=== PATIENT | female | born 1980 | race Caucasian/White ===

== ENCOUNTER 2017-05-05 14:27 | Emergency (ER) | payer OTHER ==
[2017-05-05 14:28] VITALS: BMI 27.1
[2017-05-05 14:44] VITALS: RESP 18; TEMP 98.7
[2017-05-05] MEDS: Albuterol-Ipratrop 3 mg / 0.5 (3 ml) UD IH SCH ×3 (15:50→16:17)
--- NOTE | 2017-05-05 16:18 | ED PDOC ---
Arrival/HPI - General Chief Complaint: Cough, Cold, Congestion Time Seen by Provider: 05/05/17 15:43 Historian: Patient - History of Present Illness Narrative History of Present Illness (Text): 05/05/17 15:46 This 36 yo female with pmh asthma, presents to this ED c/o cough, wheezing x 8 days. Patient stated she was seen by her PMD x 6 days ago. Patient has been taking Levaquin, Medrol Dose pack, and cough medication. Patient stated symptoms improved with Albuterol. PERC negative for PE Time/Duration: Other (see hpi) Context: Home Past Medical History - Infectious Disease Hx of Infectious Diseases: None - Tetanus Immunization Tetanus Immunization: Unknown - Cardiac Hx Cardiac Disorders: No - Pulmonary Hx Asthma: Yes - Neurological Hx Neurological Disorder: No - HEENT Hx HEENT Disorder: No - Renal Hx Renal Disorder: No - Endocrine/Metabolic Hx Endocrine Disorders: No - Hematological/Oncological Hx Blood Disorders: No - Integumentary Hx Dermatological Disorder: No - Musculoskeletal/Rheumatological Hx Musculoskeletal Disorders: No Hx Falls: No - Gastrointestinal Hx Gastrointestinal Disorders: No - Genitourinary/Gynecological Hx Genitourinary Disorders: No - Psychiatric Hx Psychophysiologic Disorder: No Hx Depression: No Hx Emotional Abuse: No Hx Physical Abuse: No Hx Substance Use: No - Past Surgical History Past Surgical History: No Previous - Anesthesia Hx Anesthesia: No Hx Anesthesia Reactions: No Hx Malignant Hyperthermia: No - Suicidal Assessment Feels Threatened In Home Enviroment: No Family/Social History Smoking Status: Never Smoked Hx Alcohol Use: No Hx Substance Use: No Hx Substance Use Treatment: No Allergies/Home Meds Allergies/Adverse Reactions: Allergies No Known Allergies Allergy (Verified 05/05/17 14:34) Home Medications: Home Meds Medication Instructions Recorded Confirmed Brompheniramine/Phenylephrine 10 ml PO Q6 05/05/17 05/05/17 [Dimaphen Elixir] Fluticasone/Vilanterol [Breo 1 puff INH DAILY 05/05/17 05/05/17 Ellipta 200-25 Mcg INH] Guaifenesin [Mucus Relief Chest] 400 mg PO BID 05/05/17 05/05/17 Levofloxacin [Levaquin] 500 mg PO DAILY 05/05/17 05/05/17 Methylprednisolone [Medrol Dose 4 mg PO DAILY 05/05/17 05/05/17 Pack (21 tabs)] Omeprazole [Omeprazole] 20 mg PO DAILY 05/05/17 05/05/17 Physical Exam Vital Signs Temp Pulse Resp BP Pulse Ox 05/05/17 17:16 84 18 132/65 98 05/05/17 14:42 98.7 F 99 H 18 134/66 96 Medical Decision Making ED Course and Treatment: 05/05/17 15:50 I reviewed the risk of using Prednisone with patient which includes AVN, osteoporosis, diabetes, glaucoma, renal failure, liver failure, or worsen of rash. She understood risk vs benefits. I told her that she could stop Prednisone sooner if symptoms resolves. 05/05/17 17:05 Re-evaluation. Patient feels better. Discussed results and plan with patient who expresses understanding. All questions answered and there is agreement with the plan to discharge home with instructions. Patient stable for discharge. Return if symptoms persist or worsen. 05/05/17 17:20 Patient requested Teschristi Barros for her cough Re-evaluation Time: 17:05 Reassessment Condition: Re-examined, Improved - RAD Interpretation Radiology Orders: 05/05/17 15:44 CHEST TWO VIEWS (PA/LAT) [RAD] Stat - Medication Orders Current Medication Orders: Discontinued Medications Albuterol/Ipratropium (Duoneb 3 Mg/0.5 Mg (3 Ml) Ud) 3 ml IH Q15M CAITLIN Stop: 05/05/17 16:16 Last Admin: 05/05/17 16:17 Dose: 3 ml Prednisone (Prednisone Tab) 60 mg PO STAT ONE Stop: 05/05/17 15:45 Last Admin: 05/05/17 16:17 Dose: 60 mg Disposition/Present on Arrival - Present on Arrival Any Indicators Present on Arrival: No History of DVT/PE: No History of Uncontrolled Diabetes: No Urinary Catheter: No History of Decub. Ulcer: No History Surgical Site Infection Following: None - Disposition Have Diagnosis and Disposition been Completed?: Yes Diagnosis: Asthma exacerbation Disposition: HOME/ ROUTINE Disposition Time: 17:06 Patient Plan: Discharge Patient Problems: Current Active Problems Problem Status Onset Asthma exacerbation Acute Condition: GOOD Discharge Instructions (ExitCare): Asthma (ED) Additional Instructions: Call private doctor for follow up visit in 1-2 days. Take medication as instructed. Return to emergency if symptoms worsen Prescriptions: Albuterol HFA [Ventolin HFA 90 mcg/actuation (8 g)] 2 puff IH [id number] PRN #120 puff PRN Reason: Wheezing Albuterol 0.083% [Albuterol Sulfate 3 Ml] 3 ml IH Q6H PRN #1 packet PRN Reason: Wheezing Benzonatate [Tessalon Perles] 100 mg PO TID PRN #20 sgl PRN Reason: Cough Prednisone [Deltasone] 60 mg PO DAILY #12 tablet Referrals: Emily Kimball MD [Family Provider] - Follow up with primary Forms: [facility] (Hebrew), WORK NOTE
--- NOTE | 2017-05-05 16:22 | RAD ---
HISTORY: cough COMPARISON: No prior. TECHNIQUE: Chest PA and lateral FINDINGS: LUNGS: No active pulmonary disease. PLEURA: No significant pleural effusion identified. No pneumothorax apparent. CARDIOVASCULAR: Normal. OSSEOUS STRUCTURES: Note made of a very subtle dextroscoliosis centered in the upper lumbar region. VISUALIZED UPPER ABDOMEN: Normal. OTHER FINDINGS: None. IMPRESSION: No active disease.
[2017-05-05 17:17] VITALS: BP 132/65; PULSE 84; O2SAT 98
== END 2017-05-05 17:21 | disposition home or self-care (01) ==
LOC: ED 14:27
DX: J45.901 Unspecified asthma with (acute) exacerbation (principal)

== ENCOUNTER 2018-09-26 17:33 | Observation (INO) | payer MEDICAID, OTHER ==
[2018-09-26 17:34] VITALS: BMI 27.1
[2018-09-26 19:23] LABS: HEMOGLOBIN 11.9 g/dL (12.0-16.0); MEAN CELL VOLUME 81.9 fl (80.0-105.0); MEAN CORPUSCULAR HEMOGLOBIN 26.2 pg (25.0-35.0); MEAN PLATELET VOLUME 10.1 fl (7.0-11.0); RBC 4.54 10^6/uL (3.5-6.1); RED CELL DISTRIBUTION WIDTH 13.4 % (11.5-14.5); WHITE BLOOD COUNT 8.6 10^3/uL (4.5-11.0)
[2018-09-26 19:43] LABS: ALB/GLOB RATIO 1.5 (1.1-1.8); ALBUMIN 4.8 g/dL (3.0-4.8); ALT/SGPT 19 U/L (7-56); AST/SGOT 37 U/L (14-36); BLOOD UREA NITROGEN 20 mg/dL (7-21); CALCIUM 9.5 mg/dL (8.4-10.5)
--- NOTE | 2018-09-26 19:50 | ED PDOC ---
Arrival/HPI - General Chief Complaint: Headache Time Seen by Provider: 09/26/18 19:21 Historian: Patient - History of Present Illness Narrative History of Present Illness (Text): 09/26/18 19:47 A 38 year old female, whose past medical history includes asthma and recently diagnosed lyme disease (placed on oral Amoxicillin 1 week ago), presents to the emergency possible fever and joint pain since prior to diagnosing lyme disease. Patient reports she went to see her PMD for symptoms and she was tested positive for lyme. States she has not felt better since starting the antibiotics, now complaining of headache, chest pain, and worsening joint pains. Patient denies any shortness of breath, or any other complaints at this time. PMD: Dr. Emily Kimball Past Medical History - Provider Review Nursing Documentation Reviewed: Yes - Infectious Disease Hx of Infectious Diseases: None - Tetanus Immunization Tetanus Immunization: Unknown - Reproductive Menopause: No - Cardiac Hx Cardiac Disorders: No - Pulmonary Hx Respiratory Disorders: Yes Hx Asthma: Yes - Neurological Hx Neurological Disorder: No - HEENT Hx HEENT Disorder: No - Renal Hx Renal Disorder: No - Endocrine/Metabolic Hx Endocrine Disorders: No - Hematological/Oncological Hx Blood Disorders: No - Integumentary Hx Dermatological Disorder: No - Musculoskeletal/Rheumatological Hx Musculoskeletal Disorders: No - Gastrointestinal Hx Gastrointestinal Disorders: Yes Other/Comment: LEFT ABDOMINAL PAIN - Genitourinary/Gynecological Hx Genitourinary Disorders: No - Psychiatric Hx Psychophysiologic Disorder: No Hx Substance Use: No - Past Surgical History Past Surgical History: No Previous - Surgical History Other/Comment: OVAIAN CYSTECTOMY - Anesthesia Hx Anesthesia: Yes Hx Anesthesia Reactions: Yes (EXACERBATION OF ASTHMA) Hx Malignant Hyperthermia: No - Suicidal Assessment Feels Threatened In Home Enviroment: No Family/Social History - Physician Review Nursing Documentation Reviewed: Yes Family/Social History: No Known Family HX Smoking Status: Never Smoked Hx Alcohol Use: No Hx Substance Use: No Hx Substance Use Treatment: No Allergies/Home Meds Allergies/Adverse Reactions: Allergies No Known Allergies Allergy (Verified 06/23/17 09:46) Home Medications: Home Meds Medication Instructions Recorded Confirmed Fluticasone/Vilanterol [Breo 1 puff INH DAILY 05/05/17 06/23/17 Ellipta 200-25 Mcg INH] Albuterol HFA [Ventolin HFA 90 2 puff IH [id number] 06/23/17 06/23/17 mcg/actuation (8 g)] Review of Systems - Physician Review All systems were reviewed & negative as marked: Yes - Review of Systems Constitutional: Fevers Respiratory: absent: SOB Cardiovascular: Chest Pain Musculoskeletal: Arthralgias Neurological: Headache Physical Exam Vital Signs Reviewed: Yes Vital Signs Temp Pulse Resp BP Pulse Ox 09/26/18 17:48 98.5 F 106 H 20 132/80 98 Temperature: Afebrile Blood Pressure: Normal Pulse: Regular Respiratory Rate: Normal Appearance: Positive for: Well-Appearing, Non-Toxic, Comfortable Pain Distress: None Mental Status: Positive for: Alert and Oriented X 3 - Systems Exam Head: Present: Atraumatic, Normocephalic Pupils: Present: PERRL Extroacular Muscles: Present: EOMI Conjunctiva: Present: Normal Mouth: Present: Moist Mucous Membranes Neck: Present: Normal Range of Motion Respiratory/Chest: Present: Clear to Auscultation, Good Air Exchange. No: Respiratory Distress, Accessory Muscle Use Cardiovascular: Present: Regular Rate and Rhythm, Normal S1, S2. No: Murmurs Abdomen: No: Tenderness, Distention, Peritoneal Signs Back: Present: Normal Inspection Upper Extremity: Present: Normal Inspection. No: Cyanosis, Edema Lower Extremity: Present: Normal Inspection. No: Edema Neurological: Present: GCS=15, CN II-XII Intact, Speech Normal Skin: Present: Warm, Dry, Normal Color. No: Rashes Psychiatric: Present: Alert, Oriented x 3, Normal Insight, Normal Concentration Medical Decision Making ED Course and Treatment: 09/26/18 19:49 Impression: 38 year old female with fever, worsening joint pain, headache, and chest pain. Physical exam is benign. Plan: -- EKG -- Chest X-ray -- Labs -- Head CT -- Reassess and disposition Progress Notes: EKG: Ordered, reviewed, and independently interpreted the EKG. Rate : 81 BPM Rhythm : NSR Interpretation : No ST-segment elevations or depressions, no T-wave inversions, normal intervals. Comparison : No previous EKG for comparison. 09/26/18 21:12 CXR Impression: As read by me, no acute process. CT Head Electronically signed on September 26, 2018 9:51:31 PM EDT by: Ki Yuz, M.D Impression: 1. No acute intracranial hemorrhage or infarct. 2. Right sphenoid sinusitis. 09/26/18 21:29 Case discussed with medical technologist microbiology and Dr. Pulido who is aware and agrees with the plan. Accepts patient into hospitalist service. - Lab Interpretations Lab Results: Total Bilirubin 0.3 mg/dL (0.2-1.3) 09/26/18 18:05 AST 37 U/L (14-36) H 09/26/18 18:05 ALT 19 U/L (7-56) 09/26/18 18:05 Alkaline Phosphatase 37 U/L (38-126) L 09/26/18 18:05 Total Protein 8.1 g/dL (5.8-8.3) 09/26/18 18:05 Albumin 4.8 g/dL (3.0-4.8) 09/26/18 18:05 Globulin 3.3 gm/dL 09/26/18 18:05 Albumin/Globulin Ratio 1.5 (1.1-1.8) 09/26/18 18:05 - RAD Interpretation Radiology Orders: 09/26/18 19:33 CHEST PORTABLE [RAD] Stat - Scribe Statement The provider has reviewed the documentation as recorded by the Irene Rahman Provider Scribe Attestation: All medical record entries made by the Roulaibtanisha were at my direction and personally dictated by me. I have reviewed the chart and agree that the record accurately reflects my personal performance of the history, physical exam, medical decision making, and the department course for this patient. I have also personally directed, reviewed, and agree with the discharge instructions and disposition. Disposition/Present on Arrival - Present on Arrival Any Indicators Present on Arrival: No History of DVT/PE: No History of Uncontrolled Diabetes: No Urinary Catheter: No History of Decub. Ulcer: No History Surgical Site Infection Following: None - Disposition Have Diagnosis and Disposition been Completed?: Yes Diagnosis: Chest pain, Lyme disease, Polyarthralgia, Headache Disposition: HOSPITALIZED Disposition Time: 21:28 Patient Plan: Observation Patient Problems: Current Active Problems Problem Status Onset Chest pain Acute Headache Acute Lyme disease Acute Polyarthralgia Acute Condition: STABLE
[2018-09-26 19:52] LABS: INR 1.08; PARTIAL THROMBOPLASTIN TIME 34.3 Seconds (26.9-38.3)
[2018-09-26 20:09] LABS: GFR NON-AFRICAN AMERICAN > 60
[2018-09-26 20:10] LABS: TROPONIN I < 0.01 ng/mL
[2018-09-26] MEDS ORDERED: cefTRIAXone 1 gm 1 GM/100 ML BAG IV STA (21:25)
[2018-09-26] MEDS ORDERED: Albuterol-Ipratrop 3 mg / 0.5 (3 ml) UD IH PRN (21:35)
--- NOTE | 2018-09-26 21:44 | CP.PCM.HP ---
<MichelleDaphne - Last Filed: 09/26/18 21:40> History of Present Illness - History of Present Illness History of Present Illness: H&P for HospitalistUriel PGY3 This is a 38yo F with past medical history of anxiety and recently diagnosed lyme disease 1 week ago by PMD who came to ED for subjective fevers, joint pain and chest pain. Patient was started on amoxicillin 11 days ago without any relief. Patient states her symptoms started in August. She was having joint pain in her hands and knees that would come and go and fatigue. Patient also had subjective fevers and when she measures her temp it is always 99F. She denies having any rashes or target lesions. Patient states she does not go camping or hiking, but does go to outdoor sports games for her children. She never noticed a tick bite and she has a dog who doesn't have a problems with ticks. She does complain of chest pain that moves into her neck and hurts with palpation. She states her knees swell intermittently, but are not swollen today. She denies shortness of breath, nausea/vomiting/diarrhea, fever/chills, dysuria/ hematuria, numbness or tingling weight loss. Past medical history: anxiety Past hospitalizations: pre-eclampsia, panic attack (at other facility) Past surgical history: tubal ligation Home meds: Amoxicillin for past 11 days Allergies: NKDA Social history: Denies EtOH, drug or tobacco use. Lives with and 2 children. Goes to school for teaching Family history: Dad- from [place] (pt not sure at what age), Mom- - unknown cause PMD: Dr. Emily Kimball Present on Admission - Present on Admission Any Indicators Present on Admission: No Review of Systems - Review of Systems All systems: reviewed and no additional remarkable complaints except Past Patient History - Infectious Disease Hx of Infectious Diseases: None - Tetanus Immunizations Tetanus Immunization: Unknown - Past Medical History & Family History Past Medical History?: Yes - Past Social History Smoking Status: Never Smoked - CARDIAC Hx Cardiac Disorders: No - PULMONARY Hx Respiratory Disorders: Yes Hx Asthma: Yes - NEUROLOGICAL Hx Neurological Disorder: No - HEENT Hx HEENT Problems: No - RENAL Hx Chronic Kidney Disease: No - ENDOCRINE/METABOLIC Hx Endocrine Disorders: No - HEMATOLOGICAL/ONCOLOGICAL Hx Blood Disorders: No - INTEGUMENTARY Hx Dermatological Problems: No - MUSCULOSKELETAL/RHEUMATOLOGICAL Hx Musculoskeletal Disorders: No - GASTROINTESTINAL Hx Gastrointestinal Disorders: Yes Other/Comment: LEFT ABDOMINAL PAIN - GENITOURINARY/GYNECOLOGICAL Hx Genitourinary Disorders: No - PSYCHIATRIC Hx Psychophysiologic Disorder: No Hx Substance Use: No - SURGICAL HISTORY Other/Comment: OVAIAN CYSTECTOMY - ANESTHESIA Hx Anesthesia: Yes Hx Anesthesia Reactions: Yes (EXACERBATION OF ASTHMA) Hx Malignant Hyperthermia: No Meds Allergies/Adverse Reactions: Allergies Allergy/AdvReac Type Severity Reaction Status Date / Time No Known Allergies Allergy Verified 06/23/17 09:46 Physical Exam - Constitutional Appears: No Acute Distress - Head Exam Head Exam: ATRAUMATIC, NORMAL INSPECTION, NORMOCEPHALIC - Eye Exam Eye Exam: Normal appearance, PERRL Pupil Exam: NORMAL ACCOMODATION, PERRL - ENT Exam ENT Exam: Mucous Membranes Moist - Respiratory Exam Respiratory Exam: Chest Wall Tenderness (on L chest ), Clear to Auscultation Bilateral, NORMAL BREATHING PATTERN. absent: Rales, Rhonchi, Wheezes - Cardiovascular Exam Cardiovascular Exam: REGULAR RHYTHM, +S1, +S2. absent: Gallop, Rubs, Systolic Murmur - GI/Abdominal Exam GI & Abdominal Exam: Normal Bowel Sounds, Soft. absent: Mass, Rebound, Rigid, Tenderness - Extremities Exam Extremities exam: Positive for: normal inspection. Negative for: calf tenderness, joint swelling, pedal edema, tenderness Additional comments: no joint swelling or tenderness in hands, knees, ankles, elbows, or shoulders - Neurological Exam Neurological exam: Alert, CN II-XII Intact, Oriented x3 Additional comments: no evidence of facial palsy - Psychiatric Exam Psychiatric exam: Normal Affect, Normal Mood - Skin Skin Exam: Dry, Intact, Normal Color Results - Vital Signs Recent Vital Signs: Last Vital Signs Temp 98.5 F 09/26/18 17:48 Pulse 91 H 09/26/18 21:04 Resp 18 09/26/18 21:04 BP 117/63 09/26/18 21:04 Pulse Ox 97 09/26/18 21:04 - Labs Result Diagrams: 09/26/18 18:05 09/26/18 18:05 Labs: Laboratory Results - last 24 hr 09/26/18 09/26/18 09/26/18 18:05 18:05 18:05 WBC 8.6 RBC 4.54 Hgb 11.9 L Hct 37.2 MCV 81.9 MCH 26.2 MCHC 32.0 RDW 13.4 Plt Count 290 MPV 10.1 PT 12.0 INR 1.08 APTT 34.3 D-Dimer, Quantitative Sodium 139 Potassium 3.9 Chloride 101 Carbon Dioxide 26 Anion Gap 16 BUN 20 Creatinine 0.7 Est GFR ( Amer) > 60 Est GFR (Non-Af Amer) > 60 Random Glucose 89 Calcium 9.5 Total Bilirubin 0.3 AST 37 H ALT 19 Alkaline Phosphatase 37 L Lactate Dehydrogenase 408 Total Creatine Kinase 45 Troponin I < 0.01 Total Protein 8.1 Albumin 4.8 Globulin 3.3 Albumin/Globulin Ratio 1.5 09/26/18 18:05 WBC RBC Hgb Hct MCV MCH MCHC RDW Plt Count MPV PT INR APTT D-Dimer, Quantitative < 200 Sodium Potassium Chloride Carbon Dioxide Anion Gap BUN Creatinine Est GFR ( Amer) Est GFR (Non-Af Amer) Random Glucose Calcium Total Bilirubin AST ALT Alkaline Phosphatase Lactate Dehydrogenase Total Creatine Kinase Troponin I Total Protein Albumin Globulin Albumin/Globulin Ratio Assessment & Plan - Assessment and Plan (Free Text) Assessment: 1. Myalgia/Arthralgia - most likely secondary to lyme disease 2. Lyme disease - recently diagnosed 11 days ago 3. Hx of anxiety Labs and imaging reviewed. Head CT showed R sphenoid sinusitis but no other intracranial pathology. CXR showed no active disease. Will place patient on d oxycycline and repeat lyme titer as well as HIV. CRP and ESR ordered. Tylenol prn pain. ID consulted. EKG showed NSR w/ AL interval of 144ms. No evidence of heart block at this time. Will trend troponin. Xanax prn for anxiety. Patient is hemodynamically stable and no sign of sepsis at this time. Case seen, discussed and reviewed with Dr. Ashok Martinez PGY3 - Date & Time Date: 09/26/18 Time: 22:26 <Dorita Pulido - Last Filed: 09/27/18 05:16> Results - Vital Signs Recent Vital Signs: Last Vital Signs Temp 98.1 F 09/27/18 00:00 Pulse 70 09/27/18 02:00 Resp 18 09/27/18 00:00 BP 97/63 L 09/27/18 00:00 Pulse Ox 99 09/27/18 00:00 - Labs Result Diagrams: 09/26/18 18:05 09/26/18 18:05 Labs: Laboratory Results - last 24 hr 09/26/18 09/26/18 09/26/18 18:05 18:05 18:05 WBC 8.6 RBC 4.54 Hgb 11.9 L Hct 37.2 MCV 81.9 MCH 26.2 MCHC 32.0 RDW 13.4 Plt Count 290 MPV 10.1 ESR PT 12.0 INR 1.08 APTT 34.3 D-Dimer, Quantitative Sodium 139 Potassium 3.9 Chloride 101 Carbon Dioxide 26 Anion Gap 16 BUN 20 Creatinine 0.7 Est GFR ( Amer) > 60 Est GFR (Non-Af Amer) > 60 Random Glucose 89 Calcium 9.5 Total Bilirubin 0.3 AST 37 H ALT 19 Alkaline Phosphatase 37 L Lactate Dehydrogenase 408 Total Creatine Kinase 45 Troponin I < 0.01 Total Protein 8.1 Albumin 4.8 Globulin 3.3 Albumin/Globulin Ratio 1.5 09/26/18 09/26/18 09/26/18 18:05 21:00 22:35 WBC RBC Hgb Hct MCV MCH MCHC RDW Plt Count MPV ESR 28 H PT INR APTT D-Dimer, Quantitative < 200 Sodium Potassium Chloride Carbon Dioxide Anion Gap BUN Creatinine Est GFR ( Amer) Est GFR (Non-Af Amer) Random Glucose Calcium Total Bilirubin AST ALT Alkaline Phosphatase Lactate Dehydrogenase Total Creatine Kinase Troponin I < 0.01 Total Protein Albumin Globulin Albumin/Globulin Ratio Attending/Attestation - Attestation I have personally seen and examined this patient.: Yes I have fully participated in the care of the patient.: Yes I have reviewed all pertinent clinical information: Yes
[2018-09-26 23:13] LABS: TROPONIN I < 0.01 ng/mL
[2018-09-27] MEDS ORDERED: Pneumococcal 23-Valent Vaccine IM ONE (00:34)
--- NOTE | 2018-09-27 07:54 | CP.PCM.PN ---
<Alan Da Silva - Last Filed: 09/27/18 13:13> Subjective - Date & Time of Evaluation Date of Evaluation: 09/27/18 Time of Evaluation: 09:30 - Subjective Subjective: Alan Da Silva-Internal Medicine Resident- Progress Note on Behalf of Dr. Carlson Subjective: Patient seen and examined. No acute events overnight. States chest pain has resolved. Admits to baseline lower extremity discomfort and joint pain. Denies fever, chills, chest pain, SOB, abdominal pain, nausea, vomiting, diarrhea, constipation, and urinary symptoms. 12 point ROS negative except as indicated in the HPI Physical Examination: - Constitutional Appears: No Acute Distress - Head Exam Head Exam: ATRAUMATIC, NORMAL INSPECTION, NORMOCEPHALIC - Eye Exam Eye Exam: Normal appearance, PERRL - ENT Exam ENT Exam: Mucous Membranes Moist - Respiratory Exam Respiratory Exam: Chest Wall Tenderness (on L chest ), Clear to Auscultation Bi lateral, NORMAL BREATHING PATTERN. absent: Rales, Rhonchi, Wheezes - Cardiovascular Exam Cardiovascular Exam: REGULAR RHYTHM, +S1, +S2. absent: Gallop, Rubs, Systolic Murmur - GI/Abdominal Exam GI & Abdominal Exam: Normal Bowel Sounds, Soft. absent: Mass, Rebound, Rigid, Tenderness - Extremities Exam Extremities exam: Positive for: normal inspection. Negative for: calf tendern ess, joint swelling, pedal edema, tenderness Additional comments: no joint swelling or tenderness in hands, knees, ankles, elbows, or shoulders - Neurological Exam Neurological exam: Alert, CN II-XII Intact, Oriented x3 - Psychiatric Exam Psychiatric exam: Normal Affect, Normal Mood - Skin Skin Exam: Dry, Intact, Normal Color Assessment and Plan: Patient is a 38 year old female with a past medical history of anxiety and rece ntly diagnosed lyme disease 1 week ago by PMD who was admitted for evaluation and treatment of subjective fevers, joint pain and chest pain. Atypical Chest Pain- resolved - troponins < 0.01 x 3 - EKG reviewed- NSR HR 81, no defining ST- T wave changes Sphenoid Sinusitis - 09/26/[address] without contrast- showed R sphenoid sinusitis but no other intracranial pathology - continue on vancomycin 1 gram IV daily, rocephin 2 grams IV daily, and doxycycline 100mg IV q12 - ID consulted- appreciate recommendations Suspected Lyme disease - continue on vancomycin 1 gram IV daily, rocephin 2 grams IV daily, and doxycyc line 100mg IV q12 - ID consulted- appreciate recommendations- lyme IgG, IgM, RPR, HIV, Hepatitis panel, parvovirus B19, gonorrhea/chlamydia RNA ordered and pending Myalgia/Arthralgia - continue acetaminophen 650mg q4 prn moderate pain Anxiety Disorder - continue home xanax 0.25mg PO TID prn anxiety Patient seen, case discussed with, and plan approved by attending physician, Dr. Carlson. Objective - Vital Signs/Intake and Output Vital Signs (last 24 hours): Temp Pulse Resp BP Pulse Ox 98.1 F 55 L 18 97/63 L 99 09/27/18 00:00 09/27/18 06:00 09/27/18 00:00 09/27/18 00:00 09/27/18 00:00 Intake and Output: 09/27/18 09/27/18 06:59 18:59 Intake Total 0 Output Total 0 Balance 0 - Medications Medications: Current Medications Acetaminophen (Tylenol 325mg Tab) 650 mg PO Q6H PRN PRN Reason: Pain, moderate (4-7) Last Admin: 09/27/18 07:38 Dose: 650 mg Albuterol/Ipratropium (Duoneb 3 Mg/0.5 Mg (3 Ml) Ud) 3 ml IH Q2H PRN PRN Reason: Shortness of Breath Alprazolam (Xanax) 0.25 mg PO Q8H PRN; Protocol PRN Reason: Anxiety Stop: 10/03/18 22:31 Doxycycline Hyclate 100 mg/ (Sodium Chloride) 100 mls @ 100 mls/hr IVPB Q12 CAITLIN; Protocol - Labs Labs: 09/26/18 18:05 09/26/18 18:05 PT 12.0 SECONDS (9.4-12.5) 09/26/18 18:05 INR 1.08 09/26/18 18:05 APTT 34.3 Seconds (26.9-38.3) 09/26/18 18:05 <Curly Carlson - Last Filed: 09/27/18 13:32> Objective - Vital Signs/Intake and Output Vital Signs (last 24 hours): Temp Pulse Resp BP Pulse Ox 98.2 F 80 18 96/62 L 98 09/27/18 07:00 09/27/18 08:00 09/27/18 07:00 09/27/18 07:00 09/27/18 08:00 Intake and Output: 09/27/18 09/27/18 06:59 18:59 Intake Total 0 Output Total 0 Balance 0 - Medications Medications: Current Medications Acetaminophen (Tylenol 325mg Tab) 650 mg PO Q4 PRN PRN Reason: Pain, moderate (4-7) Last Admin: 09/27/18 12:10 Dose: 650 mg Albuterol/Ipratropium (Duoneb 3 Mg/0.5 Mg (3 Ml) Ud) 3 ml IH Q2H PRN PRN Reason: Shortness of Breath Alprazolam (Xanax) 0.25 mg PO Q8H PRN; Protocol PRN Reason: Anxiety Stop: 10/03/18 22:31 Doxycycline Hyclate 100 mg/ (Sodium Chloride) 100 mls @ 100 mls/hr IVPB Q12 CAITLIN; Protocol Last Admin: 09/27/18 09:36 Dose: 100 mls/hr Ceftriaxone Sodium (Rocephin 2 Gm Ivpb) 2 gm in 100 mls @ 100 mls/hr IVPB DAILY CAITLIN; Protocol Last Admin: 09/27/18 10:58 Dose: 100 mls/hr Vancomycin HCl (Vancomycin 1gm) 1 gm in 250 mls @ 167 mls/hr IVPB Q12H CAITLIN; Protocol Stop: 10/06/18 12:01 - Labs Labs: 09/27/18 07:00 09/27/18 07:00 PT 12.0 SECONDS (9.4-12.5) 09/26/18 18:05 INR 1.08 09/26/18 18:05 APTT 34.3 Seconds (26.9-38.3) 09/26/18 18:05 Attending/Attestation - Attestation I have personally seen and examined this patient.: Yes I have fully participated in the care of the patient.: Yes I have reviewed all pertinent clinical information, including history, physical exam and plan: Yes Notes (Text): 09/27/18 13:27 38 year old female with past medical history of anxiety and recently diagnosed Lyme disease who presented last night with complaint of subjective fevers, myalgias/arthralgias and chest pain. Serial cardiac enzymes were negative and ACS was ruled out. CT head negative for acute findings. ID evaluation was appr eciated and patient is on iv antibiotics. Further workup labs and serologies as above are ordered. Will follow up on studies and cultures. Curly Carlson MD Hospitalist.
[2018-09-27 08:04] LABS: HEMOGLOBIN 11.7 g/dL (12.0-16.0); MEAN CELL VOLUME 81.5 fl (80.0-105.0); MEAN CORPUSCULAR HEMOGLOBIN 25.8 pg (25.0-35.0); MEAN CORPUSCULAR HGB CONC 31.6 g/dl (31.0-37.0); RBC 4.54 10^6/uL (3.5-6.1); RED CELL DISTRIBUTION WIDTH 13.3 % (11.5-14.5); WHITE BLOOD COUNT 6.5 10^3/uL (4.5-11.0)
[2018-09-27 08:23] LABS: TROPONIN I < 0.01 ng/mL
[2018-09-27 08:32] LABS: ALB/GLOB RATIO 1.4 (1.1-1.8); ALBUMIN 4.1 g/dL (3.0-4.8); AST/SGOT 31 U/L (14-36); BLOOD UREA NITROGEN 15 mg/dL (7-21); GFR NON-AFRICAN AMERICAN > 60
[2018-09-27 08:53] LABS: ALT/SGPT 13 U/L (7-56); CALCIUM 8.7 mg/dL (8.4-10.5)
--- NOTE | 2018-09-27 09:14 | RAD ---
Date of service: 09/26/2018 HISTORY: chest pain COMPARISON: Chest radiograph dated 05/05/2017. TECHNIQUE: 1 view obtained. FINDINGS: LUNGS: No active pulmonary disease. PLEURA: No significant pleural effusion identified, no pneumothorax apparent. CARDIOVASCULAR: No aortic atherosclerotic calcification present. Normal cardiac size. No pulmonary vascular congestion. OSSEOUS STRUCTURES: No significant abnormalities. VISUALIZED UPPER ABDOMEN: Normal. OTHER FINDINGS: None. IMPRESSION: No active disease.
--- NOTE | 2018-09-27 10:46 | CARD ---
APPROVED REPORT Date of service: 09/26/2018 EKG Measurement Heart [id number] <Conclusion> Normal sinus rhythm Normal ECG
[2018-09-27] MEDS: cefTRIAXone 2 GM IN NS 2 GM/100 ML BAG IVPB SCH (10:58)
--- NOTE | 2018-09-27 11:07 | CT ---
Date of service: 09/26/2018 PROCEDURE: CT HEAD WITHOUT CONTRAST. HISTORY: headache COMPARISON: CT head dated 09/21/2015. TECHNIQUE: Axial computed tomography images were obtained through the head/brain without intravenous contrast. Radiation dose: Total exam DLP = 827.24 mGy-cm. This CT exam was performed using one or more of the following dose reduction techniques: Automated exposure control, adjustment of the mA and/or kV according to patient size, and/or use of iterative reconstruction technique. FINDINGS: HEMORRHAGE: No intracranial hemorrhage. BRAIN: No mass effect or edema. No atrophy or chronic microvascular ischemic changes. VENTRICLES: Unremarkable. No hydrocephalus. CALVARIUM: Unremarkable. PARANASAL SINUSES: Unremarkable as visualized. No significant inflammatory changes. MASTOID AIR CELLS: Unremarkable as visualized. No inflammatory changes. OTHER FINDINGS: None. IMPRESSION: No acute intracranial pathology.
[2018-09-27] MEDS ORDERED: Vancomycin 1gm in NS 250ml 1 GM/250 ML BAG IVPB SCH ×2 (12:00→16:47)
--- NOTE | 2018-09-27 23:12 | CON ---
DATE: 09/27/2018 The patient is in bed, in no acute distress, nontoxic. CHIEF COMPLAINT: Joint pain times one week duration. HISTORY OF PRESENT ILLNESS: The patient is a 38-year-old female with a history of asthma, who is having joint pain and polyarthritis. The patient was seen by her doctor and diagnosed with Lyme, was given amoxicillin 500 mg. The patient has been on the medication for 1 week. The patient states that she is not improved. She actually has gotten worse. She is complaining of neck pain and headaches and low-grade fevers and her joint is a polyarticular joint. She states that she has no abdominal pain, no dysuria or frequency. She has not had any diarrhea. No rash. No nausea or vomiting. The patient's review of records reveals the patient has been to the emergency room in 2017 twice with chief complaints of altered bowel habit and bloating and another time with cold and cough and congestion. In 2015, the patient was in the emergency room 3 times with chest pain on two of those occasions and one with right flank pain. In 2014, the patient was in the emergency room complaining of cough and in 2013, the patient was in the emergency room and again in 2012, the patient was in the emergency room. PAST MEDICAL HISTORY: Significant for panic disorder and anxiety and asthma. PAST SURGICAL HISTORY: Significant for tubal ligation. SOCIAL HISTORY: She has not had any travel outside of the [place] recently. She is foreign born. She lives in [place] and works in [place]. She states she does not go anywhere between [place] and [place] and she does have a dog, but she is not big, she does not hike, the dogs have not left [place]. She has not had any exposure to Lyme. She is and has two children, a monogamous relationship. She has no history of sexually transmitted diseases. She does not smoke. ALLERGIES: THE PATIENT HAS NO KNOWN ALLERGIES. PHYSICAL EXAMINATION VITAL SIGNS: The patient is in bed with a temperature of 98, heart rate was up to 106 and as low as 55, blood pressure 97/60, and a respiratory of 18 up to 20. HEENT: Unremarkable. NECK: Supple. LUNGS: Decreased breath sounds. HEART: Normal S1, S2. ABDOMEN: Soft and nontender. No organomegaly. MUSCULOSKELETAL: Examination of the joints reveals there is no or any particular joint inflammation. LABORATORY EXAMINATION: Reveals the white count is 8.6, hemoglobin of 11.9 and platelets of 220 with a sed rate of 28. Coagulation is noted. D-dimer is negative. INR 1. Chemistries reveals AST of 37, alk phos is 37 and C-reactive protein is pending. Creatinine is normal. Microbiology is pending. REVIEW OF REPORTS: Reveals the patient had a CT scan of the head because of a headache and there is reported to be no intracranial pathology. The patient also had a chest x-ray, which is also reported to be negative. ASSESSMENT AND PLAN: A 38-year-old female with asthma, panic disorder, and anxiety, admitted with polyarticular arthritis. The patient was diagnosed with Lyme as outpatient although no real exposure between [place] and [place]. Staphylococcus aureus is in the differential versus group A Streptococcus versus neisseria gonorrhoeae, although she is and has children from a monogamous relationship. An acute rheumatic fever would be less likely, she has no fever, poststreptococcal arthritis. She did not have any sore throat. Reactive arthritis and hepatitis D, parvovirus B19 possibility, rubella vs chikungunya, although she has no history of travel history to support that. We will order blood cultures, should have a rheumatology evaluation. We will order a 2-step Lyme test, chlamydia, NAAT test, HIV test, check on the C-reactive protein. We will order an RPR and a FTA. We will order a parvovirus, PCR and antibody test in addition to hepatitis because of the LFT elevation. Hepatitis B can cause polyarthritis, hepatitis panel, hepatitis B surface antigen and a hepatitis C antibody, a PCR and hepatitis B PCR. Blood cultures will be ordered and HIV tests will be ordered. We will start the patient on vancomycin, Rocephin, and doxycycline. We will follow closely with you. Kings Ring MD
[2018-09-28] MEDS ORDERED: Vancomycin 1gm in NS 250ml 1 GM/250 ML BAG IVPB SCH (03:00)
[2018-09-28] MEDS ORDERED: Pantoprazole 40 mg EC Tab PO SCH (06:00)
[2018-09-28 06:42] LABS: HEMOGLOBIN 11.5 g/dL (12.0-16.0); MEAN CORPUSCULAR HEMOGLOBIN 26.3 pg (25.0-35.0); RBC 4.38 10^6/uL (3.5-6.1); RED CELL DISTRIBUTION WIDTH 13.2 % (11.5-14.5); WHITE BLOOD COUNT 6.7 10^3/uL (4.5-11.0)
[2018-09-28 07:28] LABS: ALB/GLOB RATIO 1.3 (1.1-1.8); ALBUMIN 4.1 g/dL (3.0-4.8); ALT/SGPT 24 U/L (7-56); AST/SGOT 38 U/L (14-36); BLOOD UREA NITROGEN 14 mg/dL (7-21); CALCIUM 8.6 mg/dL (8.4-10.5); GFR NON-AFRICAN AMERICAN > 60
[2018-09-28 08:29] VITALS: BP 114/70; PULSE 80; RESP 18; TEMP 98.3; O2SAT 100
[2018-09-28 08:43] LABS: HEPATITIS B SURFACE AG Negative (NEGATIVE)
[2018-09-28 08:44] LABS: HEPATITIS B SURFACE AG Negative (NEGATIVE)
[2018-09-28 08:50] LABS: HEPATITIS A IGM NEGATIVE (NEGATIVE); HEPATITIS B CORE AB NEGATIVE (NEGATIVE)
[2018-09-28 09:01] LABS: HEPATITIS C ANTIBODY NEGATIVE (NEGATIVE)
[2018-09-28] MEDS: cefTRIAXone 2 GM IN NS 2 GM/100 ML BAG IVPB SCH (09:10)
[2018-09-28] MEDS ORDERED: Enoxaparin 40 mg Syringe SC SCH (10:00)
--- NOTE | 2018-09-28 13:00 | PN ---
DATE: 09/28/2018 SUBJECTIVE: The patient had a questionable red neck syndrome with vancomycin yesterday. This morning, she still has generalized aches and pains and joint pain. PHYSICAL EXAMINATION: VITAL SIGNS: Temperature is 98, blood pressure is 108/60, respiratory of 18, and heart rate of 88. HEENT: Unremarkable. NECK: Supple. LUNGS: Have decreased breath sounds. HEART: Normal S1 and S2. ABDOMEN: Soft, nontender. LABORATORY DATA: Reveals a white count of 8.6, hemoglobin of 11. Chemistries are noted. Sed rate of 28, BUN of 14, and creatinine of 0.6. C-reactive protein is 19.9 and RPR is negative. Microbiology is pending. REVIEW OF ORDERS: Reveals the hepatitis profile and Chlamydia NAAT test, SABA and FTA and fourth generation cephalosporin two-step Lyme disease, parvovirus workup is still pending. Blood cultures are pending. The Lyme is pending, currently on doxycycline IV, which I will change to p.o. The patient is also on ceftriaxone. ASSESSMENT AND PLAN: A 38-year-old female, who is admitted with history of panic disorder, history of anxiety, history of asthma. The patient is admitted with polyarticular arthritis, disease of Lyme disease as outpatient, and workup pending, on Rocephin and doxycycline. We will change the doxycycline to p.o. pending the cultures and serology and initial workup. We will discontinue the vancomycin due to the questionable reaction and the vancomycin was given too read neck syndrome. Kings Ring MD
--- NOTE | 2018-09-28 13:25 | CP.PCM.DIS ---
<Huang Barron - Last Filed: 09/28/18 13:08> Provider - Provider Date of Admission: 09/27/18 10:19 Attending physician: Curly Carlson MD Primary care physician: Emily Kimball MD Consults: 09/26/18 22:09 Consult [Physician Consult] Routine Comment: Consulting Provider: Owen Toth Consulting Physician: Owen Toth Reason for Consult: lyme disease Time Spent in preparation of Discharge (in minutes): 45 Hospital Course - Lab Results Lab Results: Micro Results 09/27/18 12:30 Blood Blood Culture - Preliminary NO GROWTH AFTER 24 HOURS 09/27/18 12:15 Blood Blood Culture - Preliminary NO GROWTH AFTER 24 HOURS Most Recent Lab Values WBC 6.7 10^3/uL (4.5-11.0) 09/28/18 06:00 RBC 4.38 10^6/uL (3.5-6.1) 09/28/18 06:00 Hgb 11.5 g/dL (12.0-16.0) L 09/28/18 06:00 Hct 35.9 % (36.0-48.0) L 09/28/18 06:00 MCV 82.0 fl (80.0-105.0) 09/28/18 06:00 MCH 26.3 pg (25.0-35.0) 09/28/18 06:00 MCHC 32.0 g/dl (31.0-37.0) 09/28/18 06:00 RDW 13.2 % (11.5-14.5) 09/28/18 06:00 Plt Count 248 10^3/uL (120.0-450.0) 09/28/18 06:00 MPV 10.0 fl (7.0-11.0) 09/28/18 06:00 ESR 28 mm/hr (0.0-20.0) H 09/26/18 21:00 PT 12.0 SECONDS (9.4-12.5) 09/26/18 18:05 INR 1.08 09/26/18 18:05 APTT 34.3 Seconds (26.9-38.3) 09/26/18 18:05 D-Dimer, Quantitative < 200 ng/mlDDU (0-243) 09/26/18 18:05 Sodium 139 mmol/L (132-148) 09/28/18 06:00 Potassium 4.3 mmol/L (3.6-5.0) 09/28/18 06:00 Chloride 105 mmol/L (98-107) 09/28/18 06:00 Carbon Dioxide 24 mmol/L (21-33) 09/28/18 06:00 Anion Gap 14 (10-20) 09/28/18 06:00 BUN 14 mg/dL (7-21) 09/28/18 06:00 Creatinine 0.6 mg/dl (0.7-1.2) L 09/28/18 06:00 Est GFR ( Amer) > 60 09/28/18 06:00 Est GFR (Non-Af Amer) > 60 09/28/18 06:00 Random Glucose 85 mg/dL (70-110) 09/28/18 06:00 Calcium 8.6 mg/dL (8.4-10.5) 09/28/18 06:00 Total Bilirubin 0.5 mg/dL (0.2-1.3) 09/28/18 06:00 AST 38 U/L (14-36) H D 09/28/18 06:00 ALT 24 U/L (7-56) 09/28/18 06:00 Alkaline Phosphatase 32 U/L (38-126) L 09/28/18 06:00 Lactate Dehydrogenase 408 U/L (333-699) 09/26/18 18:05 Total Creatine Kinase 45 U/L (35-230) 09/26/18 18:05 Troponin I < 0.01 ng/mL 09/27/18 07:00 C-Reactive Protein 19.90 mg/L (0.0-9.9) H 09/26/18 22:35 Total Protein 7.3 g/dL (5.8-8.3) 09/28/18 06:00 Albumin 4.1 g/dL (3.0-4.8) 09/28/18 06:00 Globulin 3.1 gm/dL 09/28/18 06:00 Albumin/Globulin Ratio 1.3 (1.1-1.8) 09/28/18 06:00 RPR Nonreactive (NONREACTIVE) 09/27/18 12:15 Hepatitis A IgM Ab Negative (NEGATIVE) 09/27/18 12:15 Hep Bs Antigen Negative (NEGATIVE) 09/27/18 12:15 Hep B Core IgM Ab Negative (NEGATIVE) 09/27/18 12:15 Hepatitis C Antibody Negative (NEGATIVE) 09/27/18 12:15 - Hospital Course Hospital Course: Huang Barron, PGY-1, Internal Medicine Discharge Summary for Dr. Valera 38 year old female with past medical history of anxiety and recently diagnosed lyme disease 1 week ago by PMD presented with subjective fevers, joint pain, and chest pain. Patient was started on amoxicillin 11 days prior to presentation without any relief. Patient stated symptoms started in August. Patient had joint pain in hands and knees that would come and go and she would fatigue. She had subjective fevers but temperature never reached 100 at home. She denied any rashes or target lesions. She never noticed tick bite and does not have dog who has tick problems. Head CT showed no acute findings. Chest X ray showed no active disease. Patient was started on doxycycline on 09/26. EKG shows normal sinus rhythm with WI interval of 144. There was no evidence of heart block at that time. Troponinx3 was negative and as a result, chest pain was deemed as atypical. ESR was elevated at 28, CRP was elevated at 19.9. Blood culture was negative for 24 hours. Patient did not have leukocytosis throughout admission and was afebrile throughout admission. RPR was negative, hepatitis panel was negative. FTA-Abs, Chlamydia, SABA, HIV, lyme disease, Neisseria Gonorrohea, Parvovirus B19 was ordered as well. On 09/27, patient was started on vancomycin and rocephin as patient had many nonspecific findings. Patient was treated with tylenol 650 mg Q4 PRN for moderate pain. Patient was given xanax 0.25 mg TID PRN for anxiety. Yesterday, vancomycin was running at 167cc/hr. As a result, patient developed red man syndrome with flushing of head and neck. Vancomycin dose was reduced and patient's symptoms improved. Today, patient continues to be afebrile with no leukocytosis and clinically appears well. Patient was found to be stable and ready for discharge. Patient was found to be stable and ready for discharge. Patient was told to take all home medications as prescribed. Patient was told to follow up with PCP within 3-5 days. 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 Patient was told to take prescribed doxycycline 100 mg BID for 14 days. Patient was told rest of lab results would be provided if significant findings were found. Patient was told to return to the emergency department if she had any new or concerning symptoms. This is a brief summary of the events that occurred during this hospital visit. For more information, please refer to hospital documentation. Discharge Diagnoses Atypical Chest pain Sphenoid sinusitis ruled out Lyme Disease Myalgia/Arthralgia Anxiety - Date & Time of H&P Date of H&P: 09/26/18 Time of H&P: 21:40 Discharge Exam - Head Exam Head Exam: ATRAUMATIC, NORMAL INSPECTION, NORMOCEPHALIC - Eye Exam Eye Exam: EOMI Pupil Exam: PERRL - Respiratory Exam Respiratory Exam: Clear to PA & Lateral, NORMAL BREATHING PATTERN - Cardiovascular Exam Cardiovascular Exam: REGULAR RHYTHM, RRR, +S1, +S2. absent: Clicks, Gallop, Rubs - GI/Abdominal Exam GI & Abdominal Exam: Normal Bowel Sounds, Soft. absent: Distended, Firm, Guarding, Tenderness - Extremities Exam Extremities exam: full ROM, normal capillary refill, normal inspection - Neurological Exam Neurological exam: Alert, CN II-XII Intact, Normal Gait, Oriented x3 - Psychiatric Exam Psychiatric exam: Normal Affect, Normal Mood - Skin Skin Exam: Dry, Erythema (of head and neck), Intact Discharge Plan - Discharge Medications Prescriptions: Doxycycline Hyclate [Doryx] 100 mg PO Q12 14 Days #28 cap - Follow Up Plan Condition: STABLE Disposition: HOME/ ROUTINE Instructions: Lyme Disease (DC), Joint Pain Additional Instructions: Please follow up with your primary care physician within 3-5 days. Please have primary care physician refer you to ornamental brick installer for further evaluation of your arthralgia symptoms. Please take tylenol and motrin over the counter as needed for arthralgia pain. Please take doxycycline twice a day for 14 days. Please take all home medications as prescribed. Please return to the emergency room if you have any new or concerning symptoms. Referrals: Emily Kimball MD [Primary Care Provider] - <Carmenza Valera - Last Filed: 09/28/18 13:38> Provider - Provider Date of Admission: 09/27/18 10:19 Attending physician: Curly Carlson MD Primary care physician: Emily Kimball MD Consults: 09/26/18 22:09 Consult [Physician Consult] Routine Comment: Consulting Provider: Owen Toth Consulting Physician: Owen Toth Reason for Consult: lyme disease Hospital Course - Lab Results Lab Results: Micro Results 09/27/18 12:30 Blood Blood Culture - Preliminary NO GROWTH AFTER 24 HOURS 09/27/18 12:15 Blood Blood Culture - Preliminary NO GROWTH AFTER 24 HOURS Most Recent Lab Values WBC 6.7 10^3/uL (4.5-11.0) 09/28/18 06:00 RBC 4.38 10^6/uL (3.5-6.1) 09/28/18 06:00 Hgb 11.5 g/dL (12.0-16.0) L 09/28/18 06:00 Hct 35.9 % (36.0-48.0) L 09/28/18 06:00 MCV 82.0 fl (80.0-105.0) 09/28/18 06:00 MCH 26.3 pg (25.0-35.0) 09/28/18 06:00 MCHC 32.0 g/dl (31.0-37.0) 09/28/18 06:00 RDW 13.2 % (11.5-14.5) 09/28/18 06:00 Plt Count 248 10^3/uL (120.0-450.0) 09/28/18 06:00 MPV 10.0 fl (7.0-11.0) 09/28/18 06:00 ESR 28 mm/hr (0.0-20.0) H 09/26/18 21:00 PT 12.0 SECONDS (9.4-12.5) 09/26/18 18:05 INR 1.08 09/26/18 18:05 APTT 34.3 Seconds (26.9-38.3) 09/26/18 18:05 D-Dimer, Quantitative < 200 ng/mlDDU (0-243) 09/26/18 18:05 Sodium 139 mmol/L (132-148) 09/28/18 06:00 Potassium 4.3 mmol/L (3.6-5.0) 09/28/18 06:00 Chloride 105 mmol/L (98-107) 09/28/18 06:00 Carbon Dioxide 24 mmol/L (21-33) 09/28/18 06:00 Anion Gap 14 (10-20) 09/28/18 06:00 BUN 14 mg/dL (7-21) 09/28/18 06:00 Creatinine 0.6 mg/dl (0.7-1.2) L 09/28/18 06:00 Est GFR ( Amer) > 60 09/28/18 06:00 Est GFR (Non-Af Amer) > 60 09/28/18 06:00 Random Glucose 85 mg/dL (70-110) 09/28/18 06:00 Calcium 8.6 mg/dL (8.4-10.5) 09/28/18 06:00 Total Bilirubin 0.5 mg/dL (0.2-1.3) 09/28/18 06:00 AST 38 U/L (14-36) H D 09/28/18 06:00 ALT 24 U/L (7-56) 09/28/18 06:00 Alkaline Phosphatase 32 U/L (38-126) L 09/28/18 06:00 Lactate Dehydrogenase 408 U/L (333-699) 09/26/18 18:05 Total Creatine Kinase 45 U/L (35-230) 09/26/18 18:05 Troponin I < 0.01 ng/mL 09/27/18 07:00 C-Reactive Protein 19.90 mg/L (0.0-9.9) H 09/26/18 22:35 Total Protein 7.3 g/dL (5.8-8.3) 09/28/18 06:00 Albumin 4.1 g/dL (3.0-4.8) 09/28/18 06:00 Globulin 3.1 gm/dL 09/28/18 06:00 Albumin/Globulin Ratio 1.3 (1.1-1.8) 09/28/18 06:00 RPR Nonreactive (NONREACTIVE) 09/27/18 12:15 Hepatitis A IgM Ab Negative (NEGATIVE) 09/27/18 12:15 Hep Bs Antigen Negative (NEGATIVE) 09/27/18 12:15 Hep B Core IgM Ab Negative (NEGATIVE) 09/27/18 12:15 Hepatitis C Antibody Negative (NEGATIVE) 09/27/18 12:15 Attending/Attestation - Attestation I have personally seen and examined this patient.: Yes I have fully participated in the care of the patient.: Yes I have reviewed all pertinent clinical information, including history, physical exam and plan: Yes Notes (Text): 09/28/18 13:33 Medical record note made by the resident after discussion with my direction and input after the patient was personally seen and examined by me. I have reviewed the chart and agree that the record accurately reflects by personal performance of the history, physical exam, data review, and medical decision-making, in the course for the patient. I have also personally directed the plan of care. 38 year old female with past medical history of anxiety and recently diagnosed Lyme disease who presented last night with complaint of subjective fevers, myalgias/arthralgias and chest pain. EKG was negative for ischemic changes, no Herat block. Serial cardiac enzymes were negative and ACS was ruled out. CT head negative for acute findings. Patient remain afebrile during her stay in the hospital.Blooc cultures re negative for any growth.Hepatitis panel is negative.There is no swelling of joints.Patient is ambulatory. Patient case was discussed with ID by resident team and decision was made to discontinue IV antibiotics.Patient will be discharged home on oral Doxycycline .She will follow up with PMD and Rheumatology. Management plan was discussed in detail with patient. Education was provided.
[2018-09-30 20:19] LABS: SOURCE: PLASMA
[2018-09-30 21:08] LABS: LYME IGM NEGATIVE (NEGATIVE)
[2018-09-30 21:14] LABS: LYME IGG NEGATIVE (NEGATIVE)
[2018-10-01 13:15] LABS: PARVOVIRUS B19 AB (IGG) 0.7; PARVOVIRUS B19 AB (IGM) 0.2
== END 2018-09-28 13:20 | disposition home or self-care (01) ==
LOC: ED 17:33 → ERH 21:26 → 3RSO 22:25 → OBSVTOIN 09-27 10:19 → INTOOBSV 09-27 10:19
PROVIDERS: ADMIT Hospitalist; ATTEND Internal Medicine
DX: R07.89 Other chest pain (principal); A69.20 Lyme disease, unspecified; A69.23 Arthritis due to Lyme disease; M79.10 Myalgia, unspecified site; F41.0 Panic disorder [episodic paroxysmal anxiety]; J32.3 Chronic sphenoidal sinusitis; J45.909 Unspecified asthma, uncomplicated
CPT/HCPCS: 36415; 70450; 71045; 80053; 80074; 81025; 82550; 83615; 84484; 85027; 85378; 85610; 85651; 85730; 86039; 86140; 86592; 86609; 86618; 86747; 86780; 87040; 87350; 87389; 87517; 87521; 87798; 93005; 96365; 96366; 96367; 96372; 96375; 96376; 99285; G0378; J0696; J1650